=== PATIENT | female | born 2000 | race Caucasian/White ===

== ENCOUNTER 2020-04-22 10:33 | Outpatient (CLI) | payer MEDICARE, MEDICAID, SELFPAY ==
--- NOTE | 2020-04-22 10:42 | FL_ITS ---
WS: [id number] MODIFIED BARIUM SWALLOW HISTORY: Other dysphagia FLUOROSCOPY TIME: 1.6 minutes. Modified barium swallow was performed by the speech pathologist. Fluoroscopy was provided with the pa tient in a lateral projection. Multiple food consistencies were provided. Patient swallowed all food consistencies without difficulty. Several episodes of laryngeal penetratio n with the thin liquids. No aspiration. Patient swallowed the barium tablet without difficulty. FL/FL barium swallow modifd [id number] IMPRESSION: Laryngeal penetration with the thin liquids. Otherwise negative. Please see speech therapist report also for recommendations.
== END 2020-04-22 10:34 | disposition home or self-care (01) ==
LOC: RAD 10:38
PROVIDERS: Family Provider Internal Medicine; PCP Internal Medicine; Visit Provider Specialist
DX: R13.19 Other dysphagia (principal)
CPT/HCPCS: 74230; 92611

== ENCOUNTER 2021-09-13 11:12 | Outpatient (CLI) | payer MEDICARE, MEDICAID, SELFPAY ==
--- NOTE | 2021-09-13 11:30 | FL_ITS ---
WS: [id number] MODIFIED BARIUM SWALLOW TECHNIQUE: Modified barium swallow with speech therapy using multiple consistencies. FLUOROSCOPY TIME: 1.6 minutes. CLINICAL INFORMATION: R68.89 - Other general symptoms and signs COMPARISON: April 22, 2020 FINDINGS: Multiple consistencies utilized. No evidence of aspiration penetration. Initial difficulty swallowing the barium tablet which subsequently passed without difficulty. Normal oropharyngeal phase. Mild hyp otonia involving the uvula/posterior oropharynx FL/FL barium swallow modifd 09390 IMPRESSION: 1. No evidence of luzi aspiration or penetration. 2. Mild hypotonia involving the uvula/posterior oropharynx
== END 2021-09-13 11:13 | disposition home or self-care (01) ==
LOC: RAD 11:17
PROVIDERS: PCP Internal Medicine; Visit Provider Otolaryngology
DX: R68.89 Other general symptoms and signs (principal); K13.79 Other lesions of oral mucosa; P94.2 Congenital hypotonia
CPT/HCPCS: 74230; 92611

== ENCOUNTER → 2022-01-11 08:19 | Outpatient (BNVA) | payer MEDICARE, MEDICAID, SELFPAY | PROVIDERS: PCP Internal Medicine; Referring Provider Nurse Practitioner Family; Visit Provider Physician Assistant | DX: M25.532 Pain in left wrist (principal) | CPT/HCPCS: 73110; 99203; 99999 ==

== ENCOUNTER → 2022-01-25 09:40 | Outpatient (BNVA) | payer MEDICARE, MEDICAID, SELFPAY | PROVIDERS: PCP Internal Medicine; Visit Provider Physician Assistant | DX: S69.90XD Unspecified injury of unspecified wrist, hand and finger(s), subsequent encounter (principal); X58.XXXD Exposure to other specified factors, subsequent encounter | CPT/HCPCS: 73110; 99213; 99999 ==

== ENCOUNTER 2022-11-10 10:55 | Emergency (ER) | payer MEDICARE, MEDICAID, SELFPAY ==
[2022-11-10 11:07] VITALS: BP 104/72; PULSE 79; RESP 18; TEMP 36.8; O2SAT 98
[2022-11-10 14:15] VITALS: O2SAT 100
[2022-11-10 14:20] VITALS: BP 122/86; O2SAT 99
[2022-11-10 14:25] VITALS: BP 122/86; O2SAT 98
[2022-11-10 16:12] LABS: HIV 1 & 2 Antibody Non-Reactive (Non-Reactiv); HIV 1 & 2 Antigen Non-Reactive (Non-Reactiv)
[2022-11-10 16:22] LABS: Hepatitis A Antibody IgM Non-Reactive (Nonreactive); Hepatitis B Core AB, Total Non-Reactive (Nonreactive); Hepatitis B Surface AB 3.5 (11.5-1000); Hepatitis B Surface Antigen Non-Reactive (Nonreactive); Hepatitis C Virus Antibody Non-Reactive (Nonreactive)
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
[2022-11-11 17:14] LABS: RPR w(Moniotor) w/REFL Titer NON-REACTIVE (NON-REACTIVE)
== END 2022-11-10 16:30 | disposition home or self-care (01) ==
PROVIDERS: Emergency Provider Nurse Practitioner Family; PCP Nurse Practitioner Family
DX: T74.21XA Adult sexual abuse, confirmed, initial encounter (principal); Y07.59 Other non-family member, perpetrator of maltreatment and neglect; Y92.192 Bathroom in other specified residential institution as the place of occurrence of the external cause
CPT/HCPCS: 36415; 86592; 86705; 86706; 86709; 86803; 87340; 87491; 87591; 87661; 87806; 99283

== ENCOUNTER 2022-11-21 12:20 | Emergency (ER) | payer MEDICARE, MEDICAID, SELFPAY ==
[2022-11-21 12:26] VITALS: BP 110/76; PULSE 94; RESP 16; TEMP 36.6; O2SAT 99
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
== END 2022-11-21 13:36 | disposition home or self-care (01) ==
PROVIDERS: Emergency Provider Family Medicine; PCP Nurse Practitioner Family
DX: Z04.1 Encounter for examination and observation following transport accident (principal); V89.2XXA Person injured in unspecified motor-vehicle accident, traffic, initial encounter
CPT/HCPCS: 99282